=== PATIENT | female | born 1975 | race Caucasian/White ===

== ENCOUNTER → 2018-09-12 13:28 | Outpatient (CLI) | payer OTHER ==
--- NOTE | 2018-09-13 12:17 | ST ---
PATIENT:JO ANN NIEVES MEDICAL RECORD: [id number] SEX: F LOCATION:[facility] ORDER #: ADMISSION DATE: 09/12/18 AGE OF PATIENT: 43 REFERRING PHYSICIAN: INTERPRETING PHYSICIAN: SOCORRO ZENDEJAS MD DATE OF SERVICE: 09/12/2018 PROCEDURE: Treadmill stress test. Baseline ECG is normal, exercised for 6 minutes 24 seconds on Reji protocol, maximum heart rate 151 beats per minute, gradient of 85% max predicted, no ECG changes of ischemia, no symptoms of ischemia. Normal blood pressure response to exercise. FINDINGS: No arrhythmias noted. Fair exercise tolerance for age. TRANSINT:[id number] Voice Confirmation ID: [id number] DOCUMENT ID: [id number] SOCORRO ZENDEJAS MD at 1217 CC: [id number] DICTATION DATE: 09/12/18 1459 LABOR STANDARDS DIRECTOR: 09/13/18 0117 DEP CLI 09/12/18 [place] [id number] [place] [address]
--- NOTE | 2018-09-13 12:17 | EC ---
PATIENT:JO ANN NIEVES DATE OF SERVICE: 09/12/18 SEX: F MEDICAL RECORD: [id number] DATE OF : [birth year] [facility] AGE OF PATIENT: 43 ADMISSION DATE: 09/12/18 REFERRING PHYSICIAN: INTERPRETING PHYSICIAN: SOCORRO ZENDEJAS MD ECHOCARDIOGRAM REPORT ECHO CHARGES 4 ECHO COMPLETE Date: 09/12/18 CLINICAL DIAGNOSIS: CP/HTN/MURMUR ECHOCARDIOGRAPHIC MEASUREMENTS (adult normal given) AC root (d.<3.7cm) 2.6 cm LV Septum d (<1.2 cm> 1.2 cm Valve Excursion 1.8 cm LV Septum (systole) 1.7 cm Left Atria (s.<4.0cm> 3.3 cm LVPW d(<1.2cm) 1.2 cm RV (d.<2.3cm) 2.2 cm LVPW (sytole) 2.0 cm LV diastole(<5.6CM) 4.7 cm MV E-F(>70mm/sec) cm LV systole 2.3 cm LVOT Diameter 1.7 cm MV exc.(>10mm) cm Est.ejection fraction (50-75%) % DOPPLER: LVIT cm/sec A 59.0 cm/sec E 103 cm/sec LA cm/sec RVSP 26.3 mmHg LVOT 114 cm/sec AOP1/2T m/s Asc. Ao 204 cm/sec RVOT 82.0 cm/sec RA cm/sec PA 126 cm/sec AV Gradient Peak 17.0 mmHg AV Mean 8.7 mmHg AV Area 1.1 cm MV Gradient Peak 5.0 mmHg MV Mean 1.8 mmHg MV Area cm COMMENTS: Control Supervisor: Alisia OW[place] Manager Of Financial: 3 Dr. Peters TAPE# PACS Pericardial Effusion N DATE OF SERVICE: 09/12/2018 Adequate 2D, color flow, spectral Doppler, and M-Mode. No LVH. LV internal dimension is normal. Wall motion is normal. EF is greater than or equal to 55%. Aortic valve is tricuspid. No septation. Left atrium normal at 3.3 cm. Mitral valve shows no prolapse. Trace MR. Right-sided chambers are grossly normal. Trace TR. TRANSINT:[id number] Voice Confirmation ID: [id number] DOCUMENT ID: [id number] ECHOCARDIOGRAM REPORT [id number] JO ANN NIEVES GREGORY A MD at 1217 CC: [id number] DICTATION DATE: 09/12/18 1543 DOOR AND ARRIVAL ATTENDANT: 09/12/18 2349 DEP CLI 09/12/18 [place] [id number] [place] [id number]
== END | disposition home or self-care (01) ==
LOC: D.HCCARDIO 13:28
PROVIDERS: ATTEND Internal Medicine Interventional Cardiology
DX: R01.1 Cardiac murmur, unspecified (principal)